=== PATIENT | male | born 1980 | race Caucasian/White ===

== ENCOUNTER 2018-09-28 09:39 | Emergency (ER) | payer MEDICAID ==
[~2018-09-28] VITALS: Ht 177.8 cm; Wt 72.7 kg
[2018-09-28 09:41] VITALS: Ht 177.8 cm; Wt 72.7 kg
[2018-09-28] MEDS ORDERED: BACTRIM 400-801 TAB PO (10:30)
[2018-09-28] MEDS ORDERED: HYDROCODON-ACE1 EAC7 PO (10:30)
[2018-09-28 10:57] VITALS: BP 145/74
== END 2018-09-28 10:41 | disposition home or self-care (01) ==
LOC: D.ER 09:39
DX: L02.411 Cutaneous abscess of right axilla (principal)

== ENCOUNTER 2019-11-16 15:26 | Inpatient (IN) | payer OTHER ==
[~2019-11-16] VITALS: Ht 177.8 cm; Wt 70.1 kg
[~2019-11-16 15:26] MED LIST: BACTRIM 400-801 TAB PO; HYDROCODON-ACE1 EAC7 PO
--- NOTE | 2019-11-16 16:17 | NUR ---
TRAUMA BAND [id number]
[2019-11-16 16:34] LABS: BASOPHILS 0.3 % (0-2); EOSINOPHILS 0.1 % (0-7); HEMATOCRIT 44.2 % (42.0-54.0); HEMOGLOBIN 15.5 g/dL (13.5-17.5); IMMATURE GRANULOCYTES 0.3 % (0-5); LYMPHOCYTES 18.1 % (15-50); MCH 32.6 pg (26.0-34.0); MCHC 35.1 g/dL (31.0-37.0); MCV 93.1 fL (80.0-100.0); MEAN PLATELET VOLUME 9.7 fL (7.4-10.4); MONOCYTES 9.5 % (2-11); NEUTROPHILS 71.7 % (40-80); PLATELET COUNT 266 10x3/uL (130-400); RBC 4.75 10x6/uL (4.20-6.10); RDW 11.8 % (11.5-14.5); WBC 6.8 10x3/uL (4.8-10.8)
[2019-11-16 16:43] VITALS: BP 128/86
[2019-11-16 17:06] LABS: APTT 25.3 SECONDS (22.8-39.4); PROTIME 13.1 SECONDS (11.6-15.0)
[2019-11-16 17:07] LABS: CALC OSMOLALITY 277 mosm/kg (275-300); CALCIUM 9.7 mg/dL (8.5-10.1); CHLORIDE - SERUM 103 mmol/L (98-107); CREATININE - SERUM 1.4 mg/dL (0.6-1.3); GLUCOSE 121 mg/dL (74-106); POTASSIUM - SERUM 3.3 mmol/L (3.5-5.1); SODIUM 138 mmol/L (136-145); UREA NITROGEN 14 mg/dL (7-18); eGFR NON AFRICAN AMERICAN 60 mL/min (90-120)
[2019-11-16 17:24] LABS: ALBUMIN 4.3 g/dL (3.4-5.0); ALKALINE PHOSPHATASE 60 U/L (30-120); ALT (SGPT) 37 U/L (10-68); BILIRUBIN - TOTAL 0.69 mg/dL (0.2-1.3); CKMB 11.9 U/L (0.0-3.6); CREATINE KINASE 659 UL (21-232); MAGNESIUM - SERUM 1.7 mg/dL (1.8-2.4); PROTEIN - SERUM 8.1 g/dL (6.4-8.2); TROPONIN-I < 0.017 ng/mL (0.000-0.060)
[2019-11-16 17:55] VITALS: BP 154/107
--- NOTE | 2019-11-16 18:53 | NUR ---
KNEE IMMOBILIZER PLACED ON RIGHT KNEE PER EDP RENEA AMAYA.
[2019-11-16 20:40] VITALS: BP 138/107
[2019-11-16 21:30] VITALS: BP 149/107
[2019-11-16 22:30] VITALS: BP 144/105
[2019-11-16 23:27] LABS: UDS - AMPHET POSITIVE QUAL (NEGATIVE); UDS - BARB NEGATIVE QUAL (NEGATIVE); UDS - BENZO NEGATIVE QUAL (NEGATIVE); UDS - COCAINE NEGATIVE QUAL (NEGATIVE); UDS - OPIATE POSITIVE QUAL (NEGATIVE); UDS - PCP NEGATIVE QUAL (NEGATIVE); UDS - THC POSITIVE QUAL (NEGATIVE)
[2019-11-16 23:30] VITALS: BP 152/114
[2019-11-16 23:30] LABS: KETONE SMALL mg/dL (NEGATIVE); NITRITE NEGATIVE (NEGATIVE)
[2019-11-16 23:31] LABS: BILIRUBIN NEGATIVE (NEGATIVE); UROBILINOGEN NORMAL mg/dL (< 2)
[2019-11-16 23:34] LABS: BACTERIA FEW /HPF (NONE SEEN); EPITHELIAL CELLS NSEEN /hpf (0-5); WHITE CELLS - URINE 0-5 HPF (0-1)
[2019-11-17] VITALS (9 sets, daily range): BP systolic 131–160; BP diastolic 86–104; Ht 177.8 cm; Wt 70.1 kg
[2019-11-17 04:47] LABS: BASOPHILS 0.2 % (0-2); HEMATOCRIT 38.6 % (42.0-54.0); HEMOGLOBIN 13.1 g/dL (13.5-17.5); IMMATURE GRANULOCYTES 0.1 % (0-5); LYMPHOCYTES 22.2 % (15-50); MCH 32.1 pg (26.0-34.0); MCHC 33.9 g/dL (31.0-37.0); MCV 94.6 fL (80.0-100.0); MEAN PLATELET VOLUME 9.6 fL (7.4-10.4); MONOCYTES 12.2 % (2-11); NEUTROPHILS 64.3 % (40-80); RBC 4.08 10x6/uL (4.20-6.10); RDW 12.1 % (11.5-14.5)
[2019-11-17 04:59] LABS: PLATELET COUNT 205 10x3/uL (130-400); WBC 8.6 10x3/uL (4.8-10.8)
[2019-11-17 05:18] LABS: ALKALINE PHOSPHATASE 52 U/L (30-120); ALT (SGPT) 30 U/L (10-68); BILIRUBIN - TOTAL 0.66 mg/dL (0.2-1.3); CHLORIDE - SERUM 106 mmol/L (98-107); CKMB 7.4 U/L (0.0-3.6); GLUCOSE 91 mg/dL (74-106); POTASSIUM - SERUM 3.2 mmol/L (3.5-5.1); PROTEIN - SERUM 6.2 g/dL (6.4-8.2); SODIUM 139 mmol/L (136-145); TROPONIN-I < 0.017 ng/mL (0.000-0.060)
[2019-11-17 05:21] LABS: ALBUMIN 3.2 g/dL (3.4-5.0); CALC OSMOLALITY 275 mosm/kg (275-300); CARBON DIOXIDE 25.2 mmol/L (21.0-32.0); CREATINE KINASE 494 UL (21-232); CREATININE - SERUM 0.8 mg/dL (0.6-1.3); UREA NITROGEN 7 mg/dL (7-18); eGFR NON AFRICAN AMERICAN > 90 mL/min (90-120)
--- NOTE | 2019-11-17 07:10 | NUR ---
REPORT CALLED TO [facility] ON MED SURG
--- NOTE | 2019-11-17 12:16 | NUR ---
0800 ARROVED FROM [facility] ASSESSSMENT COMPLETE
[2019-11-17 12:30] LABS: CKMB 6.4 U/L (0.0-3.6); CREATINE KINASE 501 UL (21-232)
[2019-11-17 12:35] LABS: TROPONIN-I < 0.017 ng/mL (0.000-0.060)
[2019-11-17 17:15] LABS: CREATINE KINASE 449 UL (21-232)
[2019-11-17 17:16] LABS: TROPONIN-I < 0.017 ng/mL (0.000-0.060)
--- NOTE | 2019-11-17 17:16 | NUR ---
0804 DR TAYLOR ROUNDING ON PATIENT
--- NOTE | 2019-11-17 17:17 | NUR ---
[address] MARTE NOTED PATIENT REFUSED FISHER POT MSO4.
[2019-11-18 04:00] VITALS: BP 119/87
[2019-11-18 06:38] LABS: BASOPHILS 0.1 % (0-2); EOSINOPHILS 1.2 % (0-7); HEMATOCRIT 41.7 % (42.0-54.0); HEMOGLOBIN 13.8 g/dL (13.5-17.5); IMMATURE GRANULOCYTES 0.2 % (0-5); LYMPHOCYTES 11.1 % (15-50); MCH 31.8 pg (26.0-34.0); MCHC 33.1 g/dL (31.0-37.0); MCV 96.1 fL (80.0-100.0); MEAN PLATELET VOLUME 10.4 fL (7.4-10.4); MONOCYTES 10.8 % (2-11); NEUTROPHILS 76.6 % (40-80); PLATELET COUNT 212 10x3/uL (130-400); RBC 4.34 10x6/uL (4.20-6.10)
[2019-11-18 06:43] LABS: WBC 12.5 10x3/uL (4.8-10.8)
[2019-11-18 06:57] LABS: ALBUMIN 3.5 g/dL (3.4-5.0); ALKALINE PHOSPHATASE 58 U/L (30-120); ALT (SGPT) 28 U/L (10-68); BILIRUBIN - TOTAL 0.36 mg/dL (0.2-1.3); CALC OSMOLALITY 272 mosm/kg (275-300); CALCIUM 8.6 mg/dL (8.5-10.1); CARBON DIOXIDE 25.4 mmol/L (21.0-32.0); CHLORIDE - SERUM 104 mmol/L (98-107); CREATININE - SERUM 0.8 mg/dL (0.6-1.3); GLUCOSE 99 mg/dL (74-106); POTASSIUM - SERUM 3.4 mmol/L (3.5-5.1); SODIUM 138 mmol/L (136-145); eGFR NON AFRICAN AMERICAN > 90 mL/min (90-120)
[2019-11-18 06:59] LABS: UREA NITROGEN 5 mg/dL (7-18)
--- NOTE | 2019-11-18 08:00 | NUR ---
ALERT AND ORIENTED X4 WITH SUTURES INTACT TO RLE WITH NO S/S OF INFECTION. DRESING APPLIED WITH IMMOBILIZER. MORPHINE GIVEN PRN FOR PAIN 6/10 AND EFFECTIVE. TELEMETRY INTACT. ENCOURAGED TO USE CALLL LIGHT FOR ASSSIT.
[2019-11-18 11:43] VITALS: BP 145/101
--- NOTE | 2019-11-18 19:15 | NUR ---
VERY AGITATED DURING BEDSIDE SHIFT REPORT. VERBALLY DISRUPTIVE. CURSING ABOUT HAVING TO HAVE ANOTHER MRI OF HIS LEG. YELLING ABOUT UNNECESSARY "TESTS" BEING DONE. STATES, "THEY FOUND OUT I HAVE INSURANCE AND NOW THEY WANNA DO A BUNCH OF SHIT TO GET MONEY OUT OF ME." UNCOOPERATIVE WITH STAFF. AT BEDSIDE APOLOGIZING AND STATES HE IS USED TO SMOKING ABOUT 4 "JOINTS" OF MARIJUANA A DAY BECAUSE HE HAS A MEDICAL MARIJUANA CARD AND THINKS HE MAY BE WTIH DRAWING. 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
--- NOTE | 2019-11-18 20:41 | NUR ---
PT BACK FROM MRI. REFUSED CONTRAST DYE.
[2019-11-18 21:00] VITALS: BP 153/101
--- NOTE | 2019-11-18 21:10 | NUR ---
BACK FROM MRI. REFUSED COLACE AT THIS TIME. STATES, "I GOTTA SHIT NOW." VERBALLY DISRUPTIVE. IN ROOM TRYING TO ASSIST PT. TELEMETRY SHOWS SR WITH RATE OF 92. DRSG NOTED TO RLE WITH NEPTALI WRAP AND IMMOBILIZER. PEDAL PULSES GOOD. NS @ 200 MLHR INFUSING IN RT FOREARM. CL IN REACH.
--- NOTE | 2019-11-18 21:50 | NUR ---
MEDICATED WITH MORPHINE FOR C/O PAIN IN RLE. CL IN REACH. AT BEDSIDE.
--- NOTE | 2019-11-19 01:49 | NUR ---
LYING IN BED WITH EYES CLOSED. RESP EVEN AND NONLABORED. HAS RESTED WELL SO FAR. CL IN REACH. NO DISTRESS.
--- NOTE | 2019-11-19 04:25 | NUR ---
V/S TAKEN AT THIS TIME. NO DISTRESS. CL IN REACH.
--- NOTE | 2019-11-19 05:00 | NUR ---
REFUSED AM LAB DRAW
[2019-11-19 05:57] VITALS: BP 141/98
--- NOTE | 2019-11-19 08:00 | NUR ---
ALERT AND ORIENTED X4. DRESSING CHANGED TO RIGHT KNEE WITH SUTURES INTACT WITH NO S/S O F INFCTION NOTED. IMMOBILIZER INTACT WITH DECREASED EDEMA AND ERRYTHEMA NOTED.
[2019-11-19 08:16] VITALS: BP 135/90
[2019-11-19] MEDS ORDERED: BACTRIM DS TAB1 EAC1 PO (12:06)
[2019-11-19 12:23] VITALS: BP 127/88
[2019-11-19] MEDS ORDERED: NICODERM CQ1 EAC1 TOPICAL (12:59)
--- NOTE | 2019-11-19 13:00 | MORECARE ---
CASE MANAGEMENT DISCHARGE SUMMARY PATIENT: ALEXANDRA COLVIN JR UNIT: [id number] ADM DATE: 11/16/19 AGE: 39 : 82 SEX: M ROOM/BED: D.2231 AUTHOR: TOAN ESTRADA PHYSICIAN: REFERRING PHYSICIAN: JOCE MARTE MD DATE OF SERVICE: 11/19/19 Discharge Plan Patient Name: ALEXANDRA COLVIN Facility: [facility]:[place] : 1980 Planned Disposition: Home Anticipated Discharge Date: 11/19/19 Discharge Date: Expected LOS: 3 Initial Reviewer: [email or web address] Initial Review Date: 11/19/2019 Generated: 11/19/19 1:59 pm Comments DCP- Discharge Planning Updated by [email or web address]: Benji Vela on 11/19/19 12:[address] Patient Name: ALEXANDRA COLVIN Admission Status: ER Accout number: [id number] Admission Date: 11-16-2019 : 1980 Admission Diagnosis:TRAUMATIC ISCHEMIA OF MUSCLE, INITIAL ENCOUNTER Attending: JOCE MARTE Current LOS: 3 Anticipated DC Date: 11-19-2019 Planned Disposition: Home Primary Insurance: [id number] MANAGED MEDICAID Discharge Planning Comments: CM met with patient to complete initial dc planning assessment. CM educated patient on the CM role and verbal consent given to complete assessment. CM verified patient's address, phone number, and emergency contact phone numbers. Patient lives at home with his spouse, Suzanne Colvin ([phone]). At discharge, patient plans to return home and feels this is a safe discharge. Patient stated that he has 0 steps to navigate to enter his home and he can do it safely. Patient states that he is independent but has an old pair of crutches he will use to get around his home until his knee heals. Patient states that he fills his medications at [facility] in [place]. CM discussed availability of home health, rehab services, and medical equipment. Patient states declined HH, SNF, DME, and IPR. Transportation provider at discharge will be with his , Suzanne. CM will continue to follow and will assist as needed with dc plans/needs. Appointment Manager: Benji Vela DCPIA - Discharge Planning Initial Assessment Updated by [email or web address]: Benji Vela on 11/19/19 12:58 pm * Is the patient Alert and Oriented? Yes * How many steps to enter\exit or inside your home? 0/0 * PCP Dr. Aleman * Pharmacy [facility] at [place] * Preadmission Environment Home with Family * ADLs Independent * Equipment Crutch * Other Equipment n/a * List name and contact numbers for known caregivers / representatives who currently or will assist patient after discharge: Suzanne Cr - [phone] * Verbal permission to speak to the caregivers and representatives has been obtained from the patient. Yes * Community resources currently utilized None * Please name any agencies selected above. n/a * Additional services required to return to the preadmission environment? No * Can the patient safely return to the preadmission environment? Yes * Has this patient been hospitalized within the prior 30 days at any hospital? No Patient Name: ALEXANDRA COLVIN Page [id number] at 1300 All edits/amendments must be made on the electronic document DICTATION DATE: 11/19/19 1259 SCHEDULING REPRESENTATIVE: SERA 11/19/19 1259 RPT#: [id number] DC DATE: STATUS: ADM IN [facility] [address] [place] [address] END OF REPORT
--- NOTE | 2019-11-19 14:06 | NUR ---
IV DISCONTINUED AND VERBALIZED UNDERSTANDING OF DISCHARGE INSTRUCTIONS. STABLE AT TIME OF DISCHARGE.
--- NOTE | 2019-11-20 09:10 | MORECARE ---
CASE MANAGEMENT DISCHARGE SUMMARY PATIENT: ALEXANDRA COLVIN JR UNIT: [id number] ADM DATE: 11/16/19 AGE: 39 : 82 SEX: M ROOM/BED: D.2231 AUTHOR: TOAN ESTRADA PHYSICIAN: REFERRING PHYSICIAN: JOCE MARTE MD DATE OF SERVICE: 11/20/19 Discharge Plan Patient Name: ALEXANDRA COLVIN Facility: [facility]:[place] : 1980 Planned Disposition: Home Anticipated Discharge Date: 11/19/19 Discharge Date: 11/19/2019 Expected LOS: 3 Initial Reviewer: [email or web address] Initial Review Date: 11/19/2019 Generated: 11/20/19 10:09 am Comments DCP- Discharge Planning Updated by [email or web address]: Benji Vela on 11/19/19 12:[address] Patient Name: ALEXANDRA COLVIN Admission Status: ER Accout number: [id number] Admission Date: 11-16-2019 : 1980 Admission Diagnosis:TRAUMATIC ISCHEMIA OF MUSCLE, INITIAL ENCOUNTER Attending: JOCE MARTE Current LOS: 3 Anticipated DC Date: 11-19-2019 Planned Disposition: Home Primary Insurance: [employer] MA[employer]GED [employer] Discharge Planning Comments: CM met with patient to complete initial dc planning assessment. CM educated patient on the CM role and verbal consent given to complete assessment. CM verified patient's address, phone number, and emergency contact phone numbers. Patient lives at home with his spouse, Suzanne Colvin ([phone]). At discharge, patient plans to return home and feels this is a safe discharge. Patient stated that he has 0 steps to navigate to enter his home and he can do it safely. Patient states that he is independent but has an old pair of crutches he will use to get around his home until his knee heals. Patient states that he fills his medications at [facility] in [place]. CM discussed availability of home health, rehab services, and medical equipment. Patient states declined HH, SNF, DME, and IPR. Transportation provider at discharge will be with his , Suzanne. CM will continue to follow and will assist as needed with dc plans/needs. Career Representative: Benji Vela DCPIA - Discharge Planning Initial Assessment Updated by [email or web address]: Benji Vela on 11/19/19 12:58 pm * Is the patient Alert and Oriented? Yes * How many steps to enter\exit or inside your home? 0/0 * PCP Dr. Aleman * Pharmacy [facility] at [place] * Preadmission Environment Home with Family * ADLs Independent * Equipment Crutch * Other Equipment n/a * List name and contact numbers for known caregivers / representatives who currently or will assist patient after discharge: Suzanne Lomasn [phone] * Verbal permission to speak to the caregivers and representatives has been obtained from the patient. Yes * Community resources currently utilized None * Please name any agencies selected above. n/a * Additional services required to return to the preadmission environment? No * Can the patient safely return to the preadmission environment? Yes * Has this patient been hospitalized within the prior 30 days at any hospital? No Coverage Notice Reviewer: [email or web address] - Bneji Vela Notice Issued Date-Time: 11/19/2019 12:43 Notice Type: Patient Choice Letter Notice Delivered To: Patient Relationship to Patient: Self Urology Teacher Name: Delivery Method: HAND - Hand Delivered Alba Days: Prior Verbal Notification: Recipient Understood Notice: Yes Recipient Signature: Yes Med Rec Note Co-signed by Attending: Coverage Notice Comment: Patient refused HH, IPR, SNF, and DME Last DP export: 11/19/19 12:00 p Patient Name: ALEXANDRA COLVIN Page [id number] at 0910 All edits/amendments must be made on the electronic document DICTATION DATE: 11/20/19 09 CREDIT ANALYSIS MANAGER: SERA 11/20/19909 RPT#: [id number] DC DATE:11/19/19 [facility]US: [facility] [address] [place] [address] END OF REPORT
== END 2019-11-19 14:08 | disposition home or self-care (01) | DRG 565 ==
LOC: D.ER 15:26 → D.MS 19:12 → D.EDHOLD 19:12 → D.MS 11-17 06:30
PROVIDERS: Family Medicine; ADMIT Emergency Medicine; ATTEND Emergency Medicine
PROC: 0HQKXZZ Repair Right Lower Leg Skin, External Approach (ICD-10-PCS; principal; 2019-11-16)
DX: T79.6XXA Traumatic ischemia of muscle, initial encounter (principal); N17.9 Acute kidney failure, unspecified; F17.203 Nicotine dependence unspecified, with withdrawal; W86.8XXA Exposure to other electric current, initial encounter; S81.011A Laceration without foreign body, right knee, initial encounter; W45.8XXA Other foreign body or object entering through skin, initial encounter; R00.0 Tachycardia, unspecified; I10 Essential (primary) hypertension; E87.6 Hypokalemia; E83.42 Hypomagnesemia; D64.9 Anemia, unspecified; F15.10 Other stimulant abuse, uncomplicated